=== PATIENT | male | born 1945 ===

== ENCOUNTER 2016-12-03 14:37 | Observation (INO) | payer MEDICARE ==
--- NOTE | 2016-12-03 14:59 | C.PDOC ---
History Of Present Illness 71-year-old male, presents to the emergency department with complaints of intoxication. Patient states "I feel fine, I want to go." As per RN, patient stated earlier that he called EMS. Patient drank alcohol prior to arrival. No complaints at this time. All other Hx limited due to intoxication LIMITED DUE TO INTOX. "I FEEL FINE I WANT TO GO". PER RN, PT STATED EARLIER CALLED EMS. 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 PMHx of HTN and alcohol abuse. PRIOR ADMISSION FOR CHF ROS UTO EXAM PSYCH AGITATED BUT CONSOLABLE; +INTOX NARD NO RALES, NO EDEMA History Per: Patient History/Exam Limitations: intoxication Past Medical History Reviewed: Historical Data, Nursing Documentation, Vital Signs Vital Signs: Last Vital Signs Temp 97.9 F 12/03/16 14:53 Pulse 70 12/03/16 18:00 Resp 17 12/03/16 18:00 BP 109/60 12/03/16 18:00 Pulse Ox 96 12/03/16 18:00 - Medical History PMH: HTN, Kidney Stones - [facility]. Procedures ALCOHOL DETOXIFICATION (10/04/13) FLUOROSCOPY OF LEFT HEART USING LOW OSMOLAR CONTRAST (08/15/16) FLUOROSCOPY OF MULT COR ART USING L OSM CONTRAST (08/15/16) MEASURE OF CARDIAC SAMPL & PRESSURE, L HEART, PERC APPROACH (08/15/16) Family History: States: Unknown Family Hx - Social History Hx Tobacco Use: No Hx Alcohol Use: Yes Hx Substance Use: No - Immunization History Hx Tetanus Toxoid Vaccination: No Hx Influenza Vaccination: No Hx Pneumococcal Vaccination: No Review Of Systems Review Of Systems: ROS cannot be obtained secondary to pt's inabilty to answer questions. Respiratory: Negative for: Cough Gastrointestinal: Negative for: Vomiting Neurological: Negative for: Headache, Dizziness Psych: Negative for: Suicidal ideation Physical Exam - Physical Exam Appears: Non-toxic, No Acute Distress Skin: Warm, Dry, No Rash, Other (AGITATED BUT CONSOLABLE; +INTOX) Head: Atraumatic, Normacephalic Eye(s): bilateral: Normal Inspection, PERRL Nose: Normal Oral Mucosa: Moist Lips: Normal Appearing Neck: Normal ROM Cardiovascular: Rhythm Regular Respiratory: No Accessory Muscle Use, No Rales Extremity: No Pedal Edema ED Course And Treatment - Laboratory Results Result Diagrams: 12/03/16 15:17 12/03/16 15:17 ECG: Interpreted By Me ECG Rhythm: AV Paced ECG Interpretation: No Acute Changes Rate From EC - Radiology CXR: Interpreted by Me CXR Interpretation: Yes: No Acute Disease Progress - Data Reviewed Data Reviewed: Lab, Diagnostic imaging, EKG, Old records ED OBSERVATION Discharge: Yes Date of observation admission: 12/03/16 Time of observation admission: 15:00 - Observation admission statement Patient is being placed in observation because:: INTOX, SOB - Goals of Observation Goals of observation are:: SOBRIETY, MED CLEAR - Progress Note Progress Note: 12/03/16 18:07 NARD ASYMPT. CLEAR SPEECH AND THOUGHT, STEADY GAIT. NO S/S ACUTE INTOX Disposition Counseled Patient/Family Regarding: Studies Performed, Diagnosis, Need For Followup - Disposition Disposition: HOME/ ROUTINE Disposition Time: 18:07 Condition: IMPROVED - Clinical Impression Clinical Impression: Alcohol intoxication - Scribe Statement The provider has reviewed the documentation as recorded by the Luis A Grimes All medical record entries made by the Carlosibjulissa were at my direction and personally dictated by me. I have reviewed the chart and agree that the record accurately reflects my personal performance of the history, physical exam, medical decision making, and the department course for this patient. I have also personally directed, reviewed, and agree with the discharge instructions and disposition.
[2016-12-03 15:01] VITALS: TEMP 97.9
[2016-12-03 15:24] LABS: BASO # 0.1 K/uL (0.0-0.2); BASO % 0.8 % (0.0-2.0); EOS # 0.1 K/uL (0.0-0.7); EOS % 1.2 % (0.0-4.0); HEMATOCRIT 42.5 % (35.0-51.0); LYMPH # 2.2 K/uL (1.0-4.3); LYMPH % 33.6 % (20.0-40.0); MEAN CORPUSCULAR HEMOGLOBIN 31.2 pg (27.0-31.0); MEAN PLATELET VOLUME 9.3 fL (7.2-11.7); MONO # 0.4 K/uL (0.0-0.8); MONO % 5.9 % (0.0-10.0); NRBC % 0.1 % (0.0-2.0); RED CELL DISTRIBUTION WIDTH 13.7 % (11.5-14.5); WHITE BLOOD COUNT 6.4 K/uL (4.8-10.8)
[2016-12-03 15:25] LABS: MEAN CELL VOLUME 94.4 fL (80.0-94.0)
[2016-12-03 15:44] LABS: CHLORIDE 106 mmol/L (98-107); POTASSIUM 3.7 mmol/L (3.6-5.2); SODIUM 144 mmol/L (132-148)
[2016-12-03 15:46] LABS: BILIRUBIN,TOTAL 1.2 mg/dL (0.2-1.3); GFR AFRICAN-AMERICAN > 60
[2016-12-03 15:47] LABS: ALB/GLOB RATIO 1.5 (1.0-2.1); ALKALINE PHOSPHATASE 47 U/L (38-126); ALT/SGPT 19 U/L (21-72); AST/SGOT 37 U/L (17-59); BLOOD UREA NITROGEN 17 mg/dL (9-20); CALCIUM 8.7 mg/dl (8.6-10.4); CARBON DIOXIDE 22 mmol/L (22-30); GLUCOSE,RANDOM 100 mg/dL (75-110)
--- NOTE | 2016-12-03 16:02 | RAD ---
HISTORY: SOB COMPARISON: Chest x-ray performed 08/16/16 TECHNIQUE: Chest, one view. FINDINGS: Examination limited by habitus and hypoinflation. Multiple external wires and leads obscure evaluation of the underlying parenchyma. LUNGS: Mild right basilar atelectasis. Please note that chest x-ray has limited sensitivity for the detection of pulmonary masses. PLEURA: No significant pleural effusion identified. No definite pneumothorax . CARDIOVASCULAR: Cardiomegaly. Left-sided AICD. OSSEOUS STRUCTURES: No acute osseous abnormality identified. VISUALIZED UPPER ABDOMEN: Unremarkable. OTHER FINDINGS: None. IMPRESSION: Left-sided AICD. Cardiomegaly. Mild right basilar atelectasis.
[2016-12-03 18:01] VITALS: PULSE 70; RESP 17; O2SAT 96
[2016-12-03 18:02] VITALS: BP 109/60
--- NOTE | 2016-12-05 12:50 | CARD ---
APPROVED REPORT EKG Measurement Heart [id number] <Conclusion> Atrial-sensed ventricular-paced rhythm Abnormal ECG
== END 2016-12-03 18:07 | disposition home or self-care (01) ==
LOC: C.ER 14:37 → C.9OBSV 15:00
PROVIDERS: ADMIT Emergency Medicine; ATTEND Emergency Medicine
DX: F10.129 Alcohol abuse with intoxication, unspecified (principal); Y90.8 Blood alcohol level of 240 mg/100 ml or more; I11.0 Hypertensive heart disease with heart failure; I50.9 Heart failure, unspecified; Z87.442 Personal history of urinary calculi
CPT/HCPCS: 71010; 80053; 80320; 82948; 83880; 84484; 85025; 96374; 99285; G0378; J1940

== ENCOUNTER 2016-12-06 14:40 | Observation (INO) | payer MEDICARE ==
[2016-12-06 14:44] VITALS: TEMP 98
--- NOTE | 2016-12-06 15:38 | C.PDOC ---
History Of Present Illness 71 year old male brought in by EMS for acute ETOH intoxication. Patient admits to ETOH use today. Currently has no physical complaints. Time Seen by Provider: 12/06/16 15:08 Chief Complaint (Nursing): Substance Abuse History Per: Patient, EMS History/Exam Limitations: no limitations Onset/Duration Of Symptoms: Hrs Current Symptoms Are (Timing): Still Present Modifying Factor(s): Alcohol Severity: Mild Past Medical History Reviewed: Historical Data, Nursing Documentation, Vital Signs Vital Signs: Last Vital Signs Temp 98 F 12/06/16 14:41 Pulse 76 12/06/16 16:00 Resp 18 12/06/16 16:00 BP 149/78 12/06/16 16:00 Pulse Ox 95 12/06/16 16:20 - Medical History PMH: HTN, Kidney Stones Surgical History: Pacemaker - [facility] Procedures ALCOHOL DETOXIFICATION (10/04/13) FLUOROSCOPY OF LEFT HEART USING LOW OSMOLAR CONTRAST (08/15/16) FLUOROSCOPY OF MULT COR ART USING L OSM CONTRAST (08/15/16) MEASURE OF CARDIAC SAMPL & PRESSURE, L HEART, PERC APPROACH (08/15/16) Family History: States: No Known Family Hx - Social History Hx Tobacco Use: No Hx Alcohol Use: Yes Hx Substance Use: No - Immunization History Hx Tetanus Toxoid Vaccination: No Hx Influenza Vaccination: No Hx Pneumococcal Vaccination: No Review Of Systems Except As Marked, All Systems Reviewed And Found Negative. Cardiovascular: Negative for: Chest Pain, Palpitations Respiratory: Negative for: Shortness of Breath Gastrointestinal: Negative for: Nausea, Vomiting, Abdominal Pain, Diarrhea Neurological: Positive for: Other (Intoxicated) Physical Exam - Physical Exam Appears: Well, Non-toxic, Other (ETOH on breath, mildly intoxicated) Skin: Normal Color, Warm, Dry Head: Atraumatic, Normacephalic Eye(s): bilateral: Normal Inspection Oral Mucosa: Moist Neck: Normal, Normal ROM, No Midline Cervical Tenderness, No Paracervical Tenderness, No Step Off Deformity Chest: Symmetrical, No Tenderness Cardiovascular: Rhythm Regular, No Murmur Respiratory: Normal Breath Sounds, No Rales, No Rhonchi, No Wheezing Gastrointestinal/Abdominal: Normal Exam, Bowel Sounds, Soft, No Tenderness Extremity: Normal ROM, No Deformity Extremity: Bilateral: Atraumatic, Normal Color And Temperature, Normal ROM Neurological/Psych: Other (Ambulating normally) ED Course And Treatment O2 Sat by Pulse Oximetry: 95 (Room air) Pulse Ox Interpretation: Normal Progress Note: Accucheck was ordered and reviewed - WNL. Patient's girlfriend is in [place] and would like to tale patient home. She will take responsiblity for gettign patient home safely. He is currently AAOx3 and able to ambulate normally in ED. Will discharge to girlfriend's care. Reassessment Condition: Improved Disposition Counseled Patient/Family Regarding: Studies Performed, Diagnosis, Need For Followup - Disposition Disposition: HOME/ ROUTINE Disposition Time: 15:50 Condition: STABLE - POA Present On Arrival: None - Clinical Impression Clinical Impression: Alcohol use - Scribe Statement The provider has reviewed the documentation as recorded by the Scribjulissa Simons All medical record entries made by the Carlosibe were at my direction and personally dictated by me. I have reviewed the chart and agree that the record accurately reflects my personal performance of the history, physical exam, medical decision making, and the department course for this patient. I have also personally directed, reviewed, and agree with the discharge instructions and disposition.
[2016-12-06 16:11] VITALS: BP 149/78; PULSE 76; RESP 18
[2016-12-06 16:15] VITALS: O2SAT 95
== END 2016-12-06 16:03 | disposition home or self-care (01) ==
LOC: C.ER 14:40 → C.9OBSV 15:24
PROVIDERS: ADMIT Emergency Medicine; ATTEND Emergency Medicine
DX: F10.120 Alcohol abuse with intoxication, uncomplicated (principal); I10 Essential (primary) hypertension; Y90.9 Presence of alcohol in blood, level not specified

== ENCOUNTER 2016-12-18 15:25 | Emergency (ER) | payer MEDICARE ==
--- NOTE | 2016-12-18 16:05 | C.PDOC ---
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 Patient reports drinking alcohol daily, and admits to drinking today. He states that he has been unable to cope since his left him 2 months ago. Pt denies any clear suicidal plan, chest pain, shortness of breath, or any physical complaints at this time. Time Seen by Provider: 12/18/16 15:31 Chief Complaint (Nursing): Psychiatric Evaluation History Per: Patient History/Exam Limitations: no limitations Onset/Duration Of Symptoms: Hrs Current Symptoms Are (Timing): Still Present Suicide/Self Injury Attempted (Context): None Modifying Factor(s): Alcohol Severity: None Pain Scale Rating Of: 0 Associated Symptoms: Suicidal Thoughts. denies: Suicidal Plan Involuntary Hold By: None Recent travel outside of the [place]: No Additional History Per: Patient Past Medical History Reviewed: Historical Data, Nursing Documentation, Vital Signs Vital Signs: Last Vital Signs Temp 97.8 F 12/18/16 18:45 Pulse 65 12/18/16 18:45 Resp 16 12/18/16 18:45 BP 145/65 12/18/16 18:45 Pulse Ox 100 12/18/16 18:45 - Medical History PMH: Depression Surgical History: Pacemaker Family History: States: No Known Family Hx - Social History Hx Alcohol Use: Yes Hx Substance Use: Yes - Immunization History Hx Tetanus Toxoid Vaccination: No Hx Influenza Vaccination: No Hx Pneumococcal Vaccination: No Review Of Systems Except As Marked, All Systems Reviewed And Found Negative. Constitutional: Negative for: Fever, Chills Cardiovascular: Negative for: Chest Pain, Palpitations, Edema, Light Headedness Respiratory: Negative for: Cough, Shortness of Breath, Wheezing Gastrointestinal: Negative for: Nausea, Vomiting, Abdominal Pain Psych: Positive for: Suicidal ideation Physical Exam - Physical Exam Appears: Non-toxic, No Acute Distress, Other (emotionally unstable, crying, intoxicated) Skin: Normal Color, Warm, Dry Head: Atraumatic, Normacephalic Eye(s): bilateral: Normal Inspection, EOMI Neck: Normal ROM, Supple Chest: Symmetrical Cardiovascular: Rhythm Regular Respiratory: Normal Breath Sounds, No Rales, No Rhonchi, No Wheezing Gastrointestinal/Abdominal: Soft, No Tenderness Neurological/Psych: Oriented x3, Normal Speech, Normal Cognition ED Course And Treatment - Laboratory Results Result Diagrams: 12/18/16 16:28 12/18/16 16:28 Lab Interpretation: No Acute Changes Interpretation Of Abnormal: ETOH 287 ECG: Interpreted By Me ECG Rhythm: AV Paced ECG Interpretation: Abnormal O2 Sat by Pulse Oximetry: 96 (on RA) Pulse Ox Interpretation: Normal Progress Note: Labs, EKG ordered and reviewed. Patient seen adn evaluated by crisis and an outpatient plan arranged. Disposition Counseled Patient/Family Regarding: Studies Performed, Diagnosis, Need For Followup - Disposition Referrals: [facility] [Outside] Disposition: HOME/ ROUTINE Disposition Time: 23:08 Condition: IMPROVED Instructions: Alcohol Intoxication (ED), Depression (ED) Print Language: KYRGYZ - Clinical Impression Clinical Impression: Alcohol intoxication, Moderate major depression, single episode - Scribe Statement The provider has reviewed the documentation as recorded by the Luis A Cheng Provider Attestation: All medical record entries made by the Scribe were at my direction and personally dictated by me. I have reviewed the chart and agree that the record accurately reflects my personal performance of the history, physical exam, medical decision making, and the department course for this patient. I have also personally directed, reviewed, and agree with the discharge instructions and disposition.
[2016-12-18 16:41] LABS: BASO % 0.6 % (0.0-2.0); EOS # 0.2 K/uL (0.0-0.7); EOS % 2.3 % (0.0-4.0); HEMATOCRIT 43.5 % (35.0-51.0); LYMPH # 3.2 K/uL (1.0-4.3); LYMPH % 41.4 % (20.0-40.0); MEAN CELL VOLUME 95.3 fL (80.0-94.0); MEAN CORPUSCULAR HEMOGLOBIN 30.7 pg (27.0-31.0); MEAN CORPUSCULAR HGB CONC 32.3 g/dL (33.0-37.0); MEAN PLATELET VOLUME 9.2 fL (7.2-11.7); MONO # 0.7 K/uL (0.0-0.8); MONO % 8.6 % (0.0-10.0); NRBC % 0.2 % (0.0-2.0); RED CELL DISTRIBUTION WIDTH 14.8 % (11.5-14.5); WHITE BLOOD COUNT 7.7 K/uL (4.8-10.8)
[2016-12-18 16:46] LABS: RBC URINE 14 /hpf (0-3); URINE BILIRUBIN NEGATIVE (NEGATIVE); URINE BLOOD 2+ (NEGATIVE); URINE COLOR Yellow (YELLOW); URINE GLUCOSE (UA) NORMAL (Normal); URINE KETONE NEGATIVE (NEGATIVE); URINE LEUKOCYTE ESTERASE NEG Leu/uL (Negative); URINE PROTEIN NEGATIVE (NEGATIVE); URINE UROBILINOGEN NORMAL mg/dL (0.2-1.0); WBC URINE 2 /hpf (0-5)
[2016-12-18 16:47] LABS: CHLORIDE 107 mmol/L (98-107); POTASSIUM 3.6 mmol/L (3.6-5.2); SODIUM 145 mmol/L (132-148)
[2016-12-18 16:49] LABS: GFR AFRICAN-AMERICAN > 60
[2016-12-18 16:50] LABS: ALB/GLOB RATIO 1.3 (1.0-2.1); ALKALINE PHOSPHATASE 68 U/L (38-126); ALT/SGPT 9 U/L (21-72); AST/SGOT 32 U/L (17-59); BILIRUBIN,TOTAL 1.4 mg/dL (0.2-1.3); BLOOD UREA NITROGEN 20 mg/dL (9-20); CALCIUM 8.1 mg/dl (8.6-10.4); CARBON DIOXIDE 23 mmol/L (22-30); GLUCOSE,RANDOM 88 mg/dL (75-110); TOTAL PROTEIN 6.4 g/dL (6.3-8.3)
[2016-12-18 16:51] LABS: ALCOHOL SERUM 287 mg/dl (0-10)
[2016-12-18 23:16] VITALS: BP 163/56; PULSE 59; RESP 18; TEMP 98.1; O2SAT 97
--- NOTE | 2016-12-20 14:03 | CARD ---
APPROVED REPORT EKG Measurement Heart [id number] <Conclusion> Atrial-sensed ventricular-paced rhythm Abnormal ECG
== END 2016-12-18 23:23 | disposition home or self-care (01) ==
LOC: C.ER 15:25 → MERGE 15:25 → C.ER 23:23
DX: F10.129 Alcohol abuse with intoxication, unspecified (principal); Y90.8 Blood alcohol level of 240 mg/100 ml or more; F32.1 Major depressive disorder, single episode, moderate